=== PATIENT | male | born 2000 | race Caucasian/White ===

== ENCOUNTER 2020-08-15 09:52 | Emergency (ER) | payer OTHER, SELFPAY ==
[2020-08-15 09:53] VITALS: BP 140/97; PULSE 81; RESP 16; TEMP 36.3; O2SAT 100; BMI 18.8
[2020-08-15 10:05] VITALS: RESP 16
--- NOTE | 2020-08-15 10:06 | ED.VISSUMM ---
- ER Visit Summary Date of Service: 08/15/20 Chief Complaint: Laceration right middle finger History of Present Illness: The patient is a 20 M who presents with laceration to his right middle finger that occurred today just prior to arrival. Patient was trying to open a bottle and the bottle broke. Patient thinks he was cut by the edge of the broken glass. Patient is unsure of his last tetanus. Patient denies any paresthesias or weakness. Patient describes the pain as throbbing. Physical Examination: Vital signs are stable. Patient is afebrile. Patient is in no acute distress. Skin is warm and dry. There is a 1.5 cm full-thickness curvilinear laceration over the pad of the right middle finger. There is mild bleeding. There are no foreign bodies noted. Sensation was intact light touch in all digits. Capillary refill was less than 2 seconds in all digits. There is good range of motion of the MP, PIP, and DIP joints of the right middle finger. There are no deformities noted. Emergency Department Course and Treatment: The wound was cleaned and irrigated with copious amounts of normal saline. The wound was anesthetized with 1% plain lidocaine via digital block. The wound was closed with 5 simple interrupted #5-0 nylon sutures under sterile technique. Patient tolerated the procedure well. Bacitracin dressing was applied. Patient was instructed to keep the wound clean and dry. Patient was instructed to follow-up with his primary care physician in 7 days for wound recheck and suture removal. Patient understood and was agreeable with the plan. All questions were answered. Disposition: Discharge home Impression: Right middle finger laceration This note was generated with [employer] dictation software. It may contain incorrect words, spelling, and punctuation that were not noted in review of the chart prior to signing ED Disposition - Plan for ED Patient: Disposition: Home or Assisted Living Diagnosis: Laceration of right middle finger Instructions: ED Laceration Hand Referrals: Mitchell Alicia DO [Primary Care Provider] - 7 Days for suture removal
[2020-08-15] MEDS: Diphth,Pertuss(Acell),Tet Vac 0.5 ML Vial IM (10:24)
[2020-08-15] MEDS: BACITRACIN 15 GM Tube 1 APPLIC TOPICAL (10:25)
== END 2020-08-15 11:50 | disposition home or self-care (01) ==
LOC: ED 10:23
PROVIDERS: Emergency Provider Emergency Medicine; PCP Student in an Organized Health Care Education/Training Program
DX: S61.212A Laceration without foreign body of right middle finger without damage to nail, initial encounter (principal); W25.XXXA Contact with sharp glass, initial encounter; Y93.9 Activity, unspecified; Y92.89 Other specified places as the place of occurrence of the external cause; Y99.9 Unspecified external cause status
CPT/HCPCS: 12001; 90471; 90715; 99284